=== PATIENT | male | born 1955 | race Caucasian/White ===

== ENCOUNTER 2016-07-15 19:31 | Inpatient (IN) | payer MEDICARE, MEDICAID ==
[2016-07-15] MEDS ORDERED: ACTIVATED CHARCOAL-SORBITOL 50 GM/240 ML BOTTLE PO STA (20:35)
[2016-07-15] MEDS ORDERED: ONDANSETRON 4 MG/2 ML VIAL IVP STA (20:35)
--- NOTE | 2016-07-15 20:40 | ED ---
General Adult HPI - General Source: patient, RN notes reviewed Mode of arrival: wheelchair Limitations: no limitations <Gerry Hogan - Last Filed: 07/15/16 21:15> <Brandon Vaca - Last Filed: 08/07/16 14:29> - General Chief complaint: Overdose Stated complaint: Overdose Time Seen by Provider: 07/15/16 20:05 - History of Present Illness Initial comments: This is a 60-year-old male presents to the emergency department stating he has been drinking today and he took some extra pills because he wanted to kill himself. Patient states he took the pills and called his son and told his son he wanted to kill himself and then up the phone. Patient states he lost his dog last evening as well. Patient states he still suicidal. Patient states he took 9 year or so Adderall as well as 9 or so Klonopin. Patient denies any symptoms currently except the fact he wants to harm himself. Patient denies headache patient denies numbness weakness. Patient denies any chest pain palpitations difficulty breathing or shortness of breath. Patient denies any abdominal pain. Patient denies nausea vomiting diarrhea. (Gerry Hogan) - Related Data Home Medications Medication Instructions Recorded Confirmed HYDROcodone/APAP 10-325MG [[place] 1 tab PO Q6H PRN 07/15/16 07/15/16 10-325] Methylphenidate HCl [Ritalin] 10 mg PO BID 07/15/16 07/15/16 OLANZapine [ZyPREXA] 10 mg PO DAILY 07/15/16 07/15/16 Valproic Acid Oral Soln [Depakene 500 mg PO TID 07/15/16 07/15/16 Syrup] Previous Rx's Medication Instructions Recorded Mirtazapine [Remeron] 45 mg PO HS #30 tab 07/19/16 Phenytoin Sodium Extended 100 mg PO DAILY cap 07/19/16 [Dilantin] clonazePAM [KlonoPIN] 1 mg PO BID PRN tab 07/19/16 Allergies Allergy/AdvReac Type Severity Reaction Status Date / Time No Known Allergies Allergy Verified 07/15/16 20:14 Review of Systems ROS Other: All systems not noted in ROS Statement are negative. <Gerry Hogan - Last Filed: 07/15/16 21:15> ROS Other: All systems not noted in ROS Statement are negative. <Brandon Vaca - Last Filed: 08/07/16 14:29> ROS Statement: Those systems with pertinent positive or pertinent negative responses have been documented in the HPI. Past Medical History Past Medical History: Asthma History of Any Multi-Drug Resistant Organisms: None Reported Past Surgical History: Orthopedic Surgery Past Psychological History: Depression Smoking Status: Current every day smoker Past Alcohol Use History: Occasional Past Drug Use History: None Reported <Gerry Hogan - Last Filed: 07/15/16 21:15> General Exam Limitations: no limitations <Gerry Hogan - Last Filed: 07/15/16 21:15> <Brandon Vaca - Last Filed: 08/07/16 14:29> - General Exam Comments Initial Comments: GENERAL: Patient is well-developed and well-nourished. Patient is nontoxic and well- hydrated and is in no acute distress. ENT: Neck is soft and supple. No significant lymphadenopathy is noted. Oropharynx is clear. Moist mucous membranes. Neck has full range of motion without eliciting any pain. EYES: The sclera were anicteric and conjunctiva were pink and moist. Extraocular movements were intact and pupils were equal round and reactive to light. Eyelids were unremarkable. PULMONARY: Unlabored respirations. Good breath sounds bilaterally. No audible rales rhonchi or wheezing was noted. CARDIOVASCULAR: There is a regular rate and rhythm without any murmurs gallops or rubs. ABDOMEN: Soft and nontender with normal bowel sounds. No palpable organomegaly was noted. There is no palpable pulsatile mass. SKIN: Skin is clear with no lesions or rashes and otherwise unremarkable. NEUROLOGIC: Patient is alert and oriented x3. Cranial nerves II through XII are grossly intact. Motor and sensory are also intact. Normal speech, volume and content. Symmetrical smile. MUSCULOSKELETAL: Normal extremities with adequate strength and full range of motion. No lower extremity swelling or edema. No calf tenderness. LYMPHATICS: No significant lymphadenopathy is noted PSYCHIATRIC: Patient states he suicidal. Patient states he overdosed to try to kill himself. (Gerry Hogan) Medical Decision Making - Lab Data Result diagrams: 07/15/16 20:30 07/15/16 20:30 <Gerry Hogan - Last Filed: 07/15/16 21:15> - Lab Data Result diagrams: 07/15/16 20:30 07/15/16 20:30 <Brandon Vaca - Last Filed: 08/07/16 14:29> - Medical Decision Making EKG shows normal sinus rhythm at 90 bpm OR interval is on a 36 QRS is 96 QT interval 380 QTC is 464. Patient's EKG shows no ST segment elevation or depression or T-wave abdomen is noted. Dr. Vaca will be taking over care of this patient at 10 PM (Gerry Hogan) - Lab Data Lab Results 07/15/16 07/15/16 07/15/16 Range/Units 20:30 20:30 20:30 WBC 6.2 (3.8-10.6) k/uL RBC 4.77 (4.30-5.90) m/uL Hgb 14.2 (13.0-17.5) gm/dL Hct 41.9 (39.0-53.0) % MCV 87.9 (80.0-100.0) fL MCH 29.8 (25.0-35.0) pg MCHC 33.9 (31.0-37.0) g/dL RDW 18.6 H (11.5-15.5) % Plt Count 177 (150-450) k/uL Neutrophils % 59 % Lymphocytes % 30 % Monocytes % 5 % Eosinophils % 2 % Basophils % 1 % Neutrophils # 3.6 (1.3-7.7) k/uL Lymphocytes # 1.8 (1.0-4.8) k/uL Monocytes # 0.3 (0-1.0) k/uL Eosinophils # 0.2 (0-0.7) k/uL Basophils # 0.1 (0-0.2) k/uL Anisocytosis Slight Sodium 145 (137-145) mmol/L Potassium 3.7 (3.5-5.1) mmol/L Chloride 108 H (98-107) mmol/L Carbon Dioxide 23 (22-30) mmol/L Anion Gap 14 mmol/L BUN 19 (9-20) mg/dL Creatinine 0.87 (0.66-1.25) mg/dL Est GFR (MDRD) Af Amer >60 (>60 ml/min/1.73 sqM) Est GFR (MDRD) Non-Af >60 (>60 ml/min/1.73 sqM) Glucose 122 H (74-99) mg/dL Calcium 9.1 (8.4-10.2) mg/dL Total Bilirubin 0.5 (0.2-1.3) mg/dL AST 26 (17-59) U/L ALT 21 (21-72) U/L Alkaline Phosphatase 75 (38-126) U/L Total Protein 7.9 (6.3-8.2) g/dL Albumin 4.7 (3.5-5.0) g/dL TSH 0.702 (0.465-4.680) mIU/L Salicylates <1.0 mg/dL Urine Opiates Screen (NotDetected) Ur Oxycodone Screen (NotDetected) Urine Methadone Screen (NotDetected) Ur Propoxyphene Screen (NotDetected) Acetaminophen <10.0 ug/mL Ur Barbiturates Screen (NotDetected) U Tricyclic Antidepress (NotDetected) Ur Phencyclidine Scrn (NotDetected) Ur Amphetamines Screen (NotDetected) U Methamphetamines Scrn (NotDetected) U Benzodiazepines Scrn (NotDetected) Urine Cocaine Screen (NotDetected) U Marijuana (THC) Screen (NotDetected) Serum Alcohol 187 mg/dL 07/15/16 Range/Units 20:50 WBC (3.8-10.6) k/uL RBC (4.30-5.90) m/uL Hgb (13.0-17.5) gm/dL Hct (39.0-53.0) % MCV (80.0-100.0) fL MCH (25.0-35.0) pg MCHC (31.0-37.0) g/dL RDW (11.5-15.5) % Plt Count (150-450) k/uL Neutrophils % % Lymphocytes % % Monocytes % % Eosinophils % % Basophils % % Neutrophils # (1.3-7.7) k/uL Lymphocytes # (1.0-4.8) k/uL Monocytes # (0-1.0) k/uL Eosinophils # (0-0.7) k/uL Basophils # (0-0.2) k/uL Anisocytosis Sodium (137-145) mmol/L Potassium (3.5-5.1) mmol/L Chloride (98-107) mmol/L Carbon Dioxide (22-30) mmol/L Anion Gap mmol/L BUN (9-20) mg/dL Creatinine (0.66-1.25) mg/dL Est GFR (MDRD) Af Amer (>60 ml/min/1.73 sqM) Est GFR (MDRD) Non-Af (>60 ml/min/1.73 sqM) Glucose (74-99) mg/dL Calcium (8.4-10.2) mg/dL Total Bilirubin (0.2-1.3) mg/dL AST (17-59) U/L ALT (21-72) U/L Alkaline Phosphatase (38-126) U/L Total Protein (6.3-8.2) g/dL Albumin (3.5-5.0) g/dL TSH (0.465-4.680) mIU/L Salicylates mg/dL Urine Opiates Screen Not Detected (NotDetected) Ur Oxycodone Screen Not Detected (NotDetected) Urine Methadone Screen Not Detected (NotDetected) Ur Propoxyphene Screen Not Detected (NotDetected) Acetaminophen ug/mL Ur Barbiturates Screen Not Detected (NotDetected) U Tricyclic Antidepress Not Detected (NotDetected) Ur Phencyclidine Scrn Not Detected (NotDetected) Ur Amphetamines Screen Not Detected (NotDetected) U Methamphetamines Scrn Not Detected (NotDetected) U Benzodiazepines Scrn Not Detected (NotDetected) Urine Cocaine Screen Detected H (NotDetected) U Marijuana (THC) Screen Not Detected (NotDetected) Serum Alcohol mg/dL Disposition <Gerry Hogan - Last Filed: 07/15/16 21:15> <Brandon Vaca - Last Filed: 08/07/16 14:29> Clinical Impression: Depression Disposition: TRANSFER TO PSYCH HOSP/UNIT Condition: Stable
[2016-07-15 20:49] LABS: Anisocytosis Slight; Basophils # (A) 0.1 k/uL (0-0.2); Basophils % (A) 1 %; CH 29.9; CHCM 34.1; Eosinophils # (A) 0.2 k/uL (0-0.7); Eosinophils % (A) 2 %; HCT 41.9 % (39.0-53.0); HGB 14.2 gm/dL (13.0-17.5); Luc % (Auto) 3; Lymphocytes # (A) 1.8 k/uL (1.0-4.8); Lymphocytes % (A) 30 %; MCH 29.8 pg (25.0-35.0); MCHC 33.9 g/dL (31.0-37.0); MCV 87.9 fL (80.0-100.0); Mean Platelet Volume 8.5; Monocytes # (A) 0.3 k/uL (0-1.0); Monocytes % (A) 5 %; Neutrophils # (A) 3.6 k/uL (1.3-7.7); Neutrophils % (A) 59 %; RBC 4.77 m/uL (4.30-5.90); RDW 18.6 % (11.5-15.5); WBC 6.2 k/uL (3.8-10.6); WBC (Perox) 6.21
[2016-07-15 20:59] LABS: ALT 21 U/L (21-72); AST 26 U/L (17-59); Acetaminophen <10.0 ug/mL; Alkaline Phosphatase 75 U/L (38-126); Anion Gap 14 mmol/L; Blood Urea Nitrogen 19 mg/dL (9-20); Calcium 9.1 mg/dL (8.4-10.2); Carbon Dioxide 23 mmol/L (22-30); Chloride 108 mmol/L (98-107); Glucose 122 mg/dL (74-99); Non-African American GFR(MDRD) >60 (>60 ml/min/1.73 sqM); Potassium 3.7 mmol/L (3.5-5.1); Salicylate <1.0 mg/dL; Sodium 145 mmol/L (137-145); Total Bilirubin 0.5 mg/dL (0.2-1.3); Total Protein 7.9 g/dL (6.3-8.2)
[2016-07-15 21:06] LABS: Alcohol 187 mg/dL
--- NOTE | 2016-07-15 21:14 | XR ---
EXAMINATION TYPE: XR chest 2V DATE OF EXAM: 07/15/2016 9:09 PM COMPARISON: NONE HISTORY: Suicidal and smoker with crackles in the lung bases. TECHNIQUE: Frontal and lateral views of the chest are obtained. FINDINGS: There is no focal air space opacity, pleural effusion, or pneumothorax seen. The cardiac silhouette size is within normal limits. The osseous structures are intact. IMPRESSION: No acute cardiopulmonary process.
[2016-07-16] MEDS ORDERED: ACETAMINOPHEN TAB 325 MG TAB PO PRN (07:12)
[2016-07-16] MEDS ORDERED: MAG HYDROX/AL HYDROX/SIMETH 30 ML CUP PO PRN (07:12)
[2016-07-16] MEDS ORDERED: MAGNESIUM HYDROXIDE 2,400 MG/10 ML CUP PO PRN (07:12)
[2016-07-16] MEDS: PHENYTOIN SODIUM EXTENDED 100 MG CAP PO SCH (09:50)
[2016-07-16] MEDS: VALPROIC ACID ORAL SOLN 250 MG/5 ML CUP PO SCH ×3 (09:50→21:08)
[2016-07-16] MEDS: NICOTINE 21MG/24HR PATCH TRANSDERM SCH (09:51)
[2016-07-16] MEDS: OLANZapine 10 MG TAB PO SCH (09:51)
[2016-07-16] MEDS: clonazePAM 1 MG TAB PO PRN ×2 (09:55→21:10)
--- NOTE | 2016-07-16 11:01 | P.HP ---
Psychiatric H&P - . History & Physical: Allergies Allergy/AdvReac Type Severity Reaction Status Date / Time No Known Allergies Allergy Verified 07/15/16 20:14 Vital Signs Temp 98.0 F 07/16/16 07:52 Pulse 72 07/16/16 07:52 Resp 18 07/16/16 07:52 BP 132/86 07/16/16 07:52 Pulse Ox 98 07/16/16 07:52 Intake & Output 07/15/16 07/16/16 07/16/16 18:59 06:59 18:59 Output Total 200 Balance -200 Weight 77.111 kg Output: Urine 200 Straight 200 Laboratory Last Values WBC 6.2 k/uL (3.8-10.6) 07/15/16 20:30 RBC 4.77 m/uL (4.30-5.90) 07/15/16 20:30 Hgb 14.2 gm/dL (13.0-17.5) 07/15/16 20:30 Hct 41.9 % (39.0-53.0) 07/15/16 20:30 MCV 87.9 fL (80.0-100.0) 07/15/16 20:30 MCH 29.8 pg (25.0-35.0) 07/15/16 20:30 MCHC 33.9 g/dL (31.0-37.0) 07/15/16 20:30 RDW 18.6 % (11.5-15.5) H 07/15/16 20:30 Plt Count 177 k/uL (150-450) 07/15/16 20:30 Neutrophils % 59 % 07/15/16 20:30 Lymphocytes % 30 % 07/15/16 20:30 Monocytes % 5 % 07/15/16 20:30 Eosinophils % 2 % 07/15/16 20:30 Basophils % 1 % 07/15/16 20:30 Neutrophils # 3.6 k/uL (1.3-7.7) 07/15/16 20:30 Lymphocytes # 1.8 k/uL (1.0-4.8) 07/15/16 20:30 Monocytes # 0.3 k/uL (0-1.0) 07/15/16 20:30 Eosinophils # 0.2 k/uL (0-0.7) 07/15/16 20:30 Basophils # 0.1 k/uL (0-0.2) 07/15/16 20:30 Anisocytosis Slight 07/15/16 20:30 Sodium 145 mmol/L (137-145) 07/15/16 20:30 Potassium 3.7 mmol/L (3.5-5.1) 07/15/16 20:30 Chloride 108 mmol/L (98-107) H 07/15/16 20:30 Carbon Dioxide 23 mmol/L (22-30) 07/15/16 20:30 Anion Gap 14 mmol/L 07/15/16 20:30 BUN 19 mg/dL (9-20) 07/15/16 20:30 Creatinine 0.87 mg/dL (0.66-1.25) 07/15/16 20:30 Est GFR (MDRD) Af Amer >60 (>60 ml/min/1.73 sqM) 07/15/16 20:30 Est GFR (MDRD) Non-Af >60 (>60 ml/min/1.73 sqM) 07/15/16 20:30 Glucose 122 mg/dL (74-99) H 07/15/16 20:30 Calcium 9.1 mg/dL (8.4-10.2) 07/15/16 20:30 Total Bilirubin 0.5 mg/dL (0.2-1.3) 07/15/16 20:30 AST 26 U/L (17-59) 07/15/16 20:30 ALT 21 U/L (21-72) 07/15/16 20:30 Alkaline Phosphatase 75 U/L (38-126) 07/15/16 20:30 Total Protein 7.9 g/dL (6.3-8.2) 07/15/16 20:30 Albumin 4.7 g/dL (3.5-5.0) 07/15/16 20:30 Salicylates <1.0 mg/dL 07/15/16 20:30 Urine Opiates Screen Not Detected (NotDetected) 07/15/16 20:50 Ur Oxycodone Screen Not Detected (NotDetected) 07/15/16 20:50 Urine Methadone Screen Not Detected (NotDetected) 07/15/16 20:50 Ur Propoxyphene Screen Not Detected (NotDetected) 07/15/16 20:50 Acetaminophen <10.0 ug/mL 07/15/16 20:30 Ur Barbiturates Screen Not Detected (NotDetected) 07/15/16 20:50 U Tricyclic Antidepress Not Detected (NotDetected) 07/15/16 20:50 Ur Phencyclidine Scrn Not Detected (NotDetected) 07/15/16 20:50 Ur Amphetamines Screen Not Detected (NotDetected) 07/15/16 20:50 U Methamphetamines Scrn Not Detected (NotDetected) 07/15/16 20:50 U Benzodiazepines Scrn Not Detected (NotDetected) 07/15/16 20:50 Urine Cocaine Screen Detected (NotDetected) H 07/15/16 20:50 U Marijuana (THC) Screen Not Detected (NotDetected) 07/15/16 20:50 Serum Alcohol 187 mg/dL 07/15/16 20:30 07/16/16 10:48 IDENTIFYING DATA: This patient is a 60-year-old who was admitted to the mental health unit through the emergency room with acute suicidal ideation. HPI: The patient presented to the emergency room intoxicated alcohol level was 187. He reported that he had overdosed with Ritalin and Klonopin taking 3 tablets of Ritalin 8 or 9 tablets of Klonopin and other medications with them. He states his intent was to when he took the overdose. He had consumed a half pint of vodka as well. He reports a long history of depression and this suicide attempt appeared to be triggered by the of his dog on Friday. He reports feeling tired now. Appetite has been decreased energy low. He felt overwhelmed by stressors which include financial and his car breaking down. He endorses previous episodes of depression. He states he's been diagnosed with bipolar disorder but does not endorse symptoms consistent with manic episodes. He states he's ordinarily not anxious he is endorsing no panic attacks. He does work with a psychiatrist in the [facility] and sees him monthly. The patient states that he was just admitted to [facility] psychiatric unit 6 or 8 months ago. He states he was there for 3-4 weeks. He is reporting no auditory or visual hallucinations he is endorsing no specific delusions. He reports having no firearms at home. PAST PSYCHIATRIC HISTORY: Approximately 3 prior inpatient psychiatric admissions , approximately a total of 3 suicide attempts all involving medication overdose. He works with a psychiatrist "Dr. Bell" in the [facility]. We believe he is prescribed Zyprexa 10 mg daily, Remeron 30 mg at bedtime, Ritalin 10 mg twice daily, Klonopin 1 mg 2-3 times daily. He is unaware of other psychotropic medications he may have taken. PMH: Chronic back pain ALLERGIES: NO KNOWN DRUG ALLERGIES MEDICATIONS: As above he also has a seizure disorder and takes Dilantin and Depakene and [place] 10 mg every 6 hours as needed for pain CHEMICAL DEPENDENCY HISTORY: He reports a previous history of alcohol use disorder but states he has not had any alcohol in approximately one year he was drinking heavily after the of his 10 years ago. He reports no use of marijuana or any other illicit drug he states he's never been in residential treatment for chemical dependency reasons. His urine drug screen was positive however for cocaine FAMILY PSYCHIATRIC HISTORY: None reported, no suicides in the family FAMILY CHEMICAL DEPENDENCY HISTORY: Unknown SOCIAL HISTORY: The patient is 60 years old he is a for 10 years, he has 4 children he states that he does speak with them frequently. He recently moved to the [facility] one month ago as he has a brother and cousin in this area. He was previously residing in [place]. He has an 11th grade education, no history of service, he is not employed and is on a disability income for back pain and psychiatric reasons. Abuse history none reported, legal history he states that he's had several arrests over 30 years ago and would not specify the reasons. He does state it were not for violent crimes. MENTAL STATUS EXAM: The patient is a thin male appearing older than his stated age he has a disheveled appearance he is balding he has an overgrown mustache and has not shaved. He is dressed in hospital gowns. He appears tired but is not lethargic. Eye contact is appropriate speech is nonspontaneous but he provides brief answers to questions asked in a quiet monotone voice. He does have significant hearing loss requiring me to speak in a loud tone. He reports his mood is depressed with suicidal ideation. He feels overwhelmed by stressors. Affect is flat with no change in expression during the session. He reports no homicidal ideation, he reports no auditory or visual hallucinations and no current specific delusions. He states in the past he had struggled with thoughts of people following him and always wanting to look over his shoulder. He demonstrates no verbal or physical aggressiveness. He demonstrates no abnormal involuntary movements. He is oriented to person place and date. He is able to name the days of the week backwards. STRENGTHS/WEAKNESSES: Strengths: Housing, income weaknesses: Substance use, grief and loss INTELLECTUAL FUNCTIONING: Average IMPRESSIONS: [] 1. Major depressive disorder recurrent severe without psychosis, rule out bipolar depression, history of alcohol use disorder 2. History of back pain 3. Financial strain, loss of dog PLAN: The patient has been admitted to the mental health unit he is here voluntarily. We reviewed his presenting symptoms at this point we will continue his psychiatric medicines as written but will use the Klonopin 1 mg up to twice daily, Zyprexa 10 mg daily Remeron 30 mg at bedtime. We will hold the Ritalin for now. Dilantin and Depakene will be continued. We will try to obtain records from his treating psychiatrist or at least his last hospitalization. Social work is alert he met with the patient to complete a psychosocial history. The patient will be seen by the internal medicine physician for routine history and physical exam. We will discuss his use of substances further. We will monitor him for safety and encourage his full participation in the milieu. We will involve family or other support in treatment and discharge planning as available and as he will allow.
--- NOTE | 2016-07-16 14:59 | P.CONS ---
History of Present Illness - Reason for Consult Consult date: 07/16/16 Medical management - History of Present Illness This is a 60-year-old male with past medical history for seizure disorder, hepatitis C treated with interferon and then with her bony for 12 weeks one year ago, depression, tobacco use and dependence, history of alcohol abuse. Patient states he has been depressed for at least 10 years. He does see a psychiatrist. He denies any suicidal thoughts now. He presented to [facility] emergency center. Chest x-ray showed no acute findings. Urine drug screen was positive for cocaine. Valproic acid less than 10, the nitro: Less than 3. Alcohol level CLXXXVII, acetaminophen less than 10 , salicylate less than 1. Patient states that he has been taking his seizure medications as instructed. Patient denies taking any street drugs. Review of Systems All systems: negative Constitutional: Denies chills, Denies fever Eyes: denies blurred vision, denies pain Ears, nose, mouth and throat: Denies headache, Denies sore throat Cardiovascular: Denies chest pain, Denies shortness of breath Respiratory: Denies cough Gastrointestinal: Denies abdominal pain, Denies diarrhea, Denies nausea, Denies vomiting Musculoskeletal: Denies myalgias Integumentary: Denies pruritus, Denies rash Neurological: Denies numbness, Denies weakness Psychiatric: Reports depression, Denies anxiety, Denies suicidal ideation Endocrine: Denies fatigue, Denies weight change Past Medical History Additional Past Medical History / Comment(s): Hepatitis C, seizure disorder History of Any Multi-Drug Resistant Organisms: None Reported Past Surgical History: Orthopedic Surgery Additional Past Surgical History / Comment(s): Sarbjit and pins in his left leg due to crushing accident Past Psychological History: Depression Smoking Status: Current every day smoker Past Alcohol Use History: Occasional Additional Past Alcohol Use History / Comment(s): He is a smoker one pack per day for 40 years. He states he used to use a lot of alcohol. He denies any street drug, medical marijuana, marijuana use. Past Drug Use History: None Reported - Past Family History Father Additional Family Medical History / Comment(s): Father at age 45 from colon cancer. Mother Additional Family Medical History / Comment(s): Mother in her 30s from sepsis. Brother(s) Additional Family Medical History / Comment(s): Patient has 1 brother and 1 sister with no major medical problems. Patient has 4 sons with no major medical problems. Medications and Allergies Home Medications Medication Instructions Recorded Confirmed Type HYDROcodone/APAP 10-325MG [[place] 1 tab PO Q6H PRN 07/15/16 07/15/16 History 10-325] Methylphenidate HCl [Ritalin] 10 mg PO BID 07/15/16 07/15/16 History Mirtazapine [Remeron] 30 mg PO HS 07/15/16 07/15/16 History OLANZapine [ZyPREXA] 10 mg PO DAILY 07/15/16 07/15/16 History Phenytoin Sodium Extended 100 mg PO DAILY 07/15/16 07/15/16 History [Dilantin] Valproic Acid Oral Soln [Depakene 500 mg PO TID 07/15/16 07/15/16 History Syrup] clonazePAM [KlonoPIN] 1 mg PO TID PRN 07/15/16 07/15/16 History Allergies Allergy/AdvReac Type Severity Reaction Status Date / Time No Known Allergies Allergy Verified 07/15/16 20:14 Physical Exam Vitals: Vital Signs Temp Pulse Resp BP Pulse Ox 07/16/16 07:52 98.0 F 72 18 132/86 98 07/16/16 06:54 81 16 134/84 97 07/16/16 00:13 86 16 115/67 92 L 07/15/16 23:00 96.8 F L 98 16 114/68 91 L 07/15/16 22:47 94 16 114/68 98 07/15/16 20:01 97.9 F 92 18 129/75 96 Intake and Output 07/15/16 07/16/16 07/16/16 22:59 06:59 14:59 Output Total 200 Balance -200 Output: Urine 200 Straight 200 Other: Weight 77.111 kg Gen: This is a thin 60-year-old male. His speech is low volume and difficult to understand. HEENT: Head is atraumatic, normocephalic. Pupils equal, round. Sclerae is anicteric. NECK: Supple. No JVD. No lymphadenopathy. No thyromegaly. LUNGS: Clear to auscultation. No wheezes or rhonchi. No intercostal retractions. HEART: Regular rate and rhythm. No murmur. ABDOMEN: Soft. Bowel sounds are present. No masses. No tenderness. EXTREMITIES: No pedal edema. No calf tenderness. NEUROLOGICAL: Patient is awake, alert and oriented x3. Cranial nerves 2 through 12 are grossly intact. Results CBC & Chem 7: 07/15/16 20:30 07/15/16 20:30 Labs: Abnormal Lab Results - Last 24 Hours (Table) 07/15/16 07/15/16 07/15/16 Range/Units 20:30 20:30 20:50 RDW 18.6 H (11.5-15.5) % Chloride 108 H (98-107) mmol/L Glucose 122 H (74-99) mg/dL Urine Cocaine Screen Detected H (NotDetected) Assessment and Plan Plan: 1. Depression. Patient admitted to the mental health unit. Continue current plan of care. 2. Tobacco use and dependence. Continue nicotine patch. 3. Seizure disorder. Patient has been resumed back on his normal dose of valproic acid and phenytoin. 4. History of alcohol abuse. Continue as in #1. 5. Hepatitis C status post Abhay he treatment. Liver function tests normal. Impression and plan of care have been directed as dictated by the signing physician. Thania Saenz nurse practitioner acting as scribe for signing physician.
[2016-07-16] MEDS ORDERED: MIRTAZAPINE 15 MG TAB PO SCH (21:00)
[2016-07-17 06:54] VITALS: RESP 16
--- NOTE | 2016-07-17 10:20 | P.PN ---
Progress Note - Text Interval history: The patient is found in the library he follows me to an interview room. The patient refused medications this morning as he felt we were prescribing them correctly. We held a detail discussion regarding his medications. We still have not received any records from his outpatient clinician's office. We decided to proceed with increasing the Remeron to 45 mg at bedtime to further address depressive symptoms. His Klonopin is available 1 mg up to twice daily as needed we will reinstitute the Ritalin 10 mg twice daily. He feels the Ritalin is very helpful in helping him concentrate focus. Vital signs reviewed. He states he was doing fairly well up until the of his dog. In general he describes himself as being lonely and his 2 dogs were the only companionship he has on a regular basis. His brother is in the area and he reports he did speak with him on the phone but he is employed so he is not sure if his brother will visit this evening. We discussed the importance of the patient attending groups however he does have a significant hearing impairment. Mental status exam: The patient is a thin male hygiene and improved it appears he showered grooming is improved. He is dressed in his own clothing. Eye contact is appropriate he maintains a flat affect he has significant hearing loss requiring me to speak in a loud tone. He endorses feeling of sadness loneliness. He feels safe here in the hospital and reports no acute suicidal ideation. There is no homicidal ideation there is no evidence of psychosis hypomania or ed. Insight and judgment limited. He is oriented to person place month and year. He demonstrates no abnormal involuntary movements. Plan: The patient's will continue on his current medication however we will increase the Remeron to 45 mg at bedtime I will order his Ritalin 10 mg twice daily before breakfast and lunch. Klonopin's available twice a day as needed he is encouraged to use it only when needed. We will attempt to contact his brother for collateral information we will review any records we received from his outpatient clinician. He is encouraged participate in the milieu we will continue to monitor him for safety.
[2016-07-17] MEDS: VALPROIC ACID ORAL SOLN 250 MG/5 ML CUP PO SCH ×3 (10:36→20:52)
[2016-07-17] MEDS: PHENYTOIN SODIUM EXTENDED 100 MG CAP PO SCH ×2 (10:36→10:39)
[2016-07-17] MEDS: OLANZapine 10 MG TAB PO SCH (10:39)
[2016-07-17] MEDS: clonazePAM 1 MG TAB PO PRN (10:39)
[2016-07-17] MEDS: NICOTINE 21MG/24HR PATCH TRANSDERM SCH (10:40)
[2016-07-17] MEDS: METHYLPHENIDATE HCL 10 MG TAB PO SCH (13:09)
[2016-07-17] MEDS: MIRTAZAPINE 45 MG TABLET PO SCH (20:52)
[2016-07-18] MEDS: VALPROIC ACID ORAL SOLN 250 MG/5 ML CUP PO SCH ×3 (08:20→21:05)
[2016-07-18] MEDS: METHYLPHENIDATE HCL 10 MG TAB PO SCH ×2 (08:20→12:53)
[2016-07-18] MEDS: OLANZapine 10 MG TAB PO SCH (08:20)
[2016-07-18] MEDS: NICOTINE 21MG/24HR PATCH TRANSDERM SCH (08:20)
[2016-07-18] MEDS: clonazePAM 1 MG TAB PO PRN ×2 (08:21→21:07)
--- NOTE | 2016-07-18 11:06 | P.PN ---
Progress Note - Text Interval history: The patient is found in his room he follows me to an interview room. He reports that his moods improving. He was able to sleep last night. He is participating in the milieu. We discussed the events precipitating this admission mainly the of his dog. Spontaneously he states "I should've called my son" as a coping skill to deal with that loss. He has been compliant with medications he has demonstrated no agitated behavior. We discussed his significant hearing loss and he does have a plan to begin the process for getting hearing aids. Social work has spoken with the patient's son and brother and reportedly neither of them have any concerns regarding a discharge plan for tomorrow. Mental status exam: The patient is a tall thin male casually dressed hygiene is adequate. Eye contact is appropriate speech is fluent and spontaneous at times. He maintains a constricted affect but does demonstrate brief smiling twice. He is edentulous. He seated calmly in the chair he demonstrates no verbal or physical aggressiveness. He is endorsing no suicidal or homicidal ideation intent or plan. He is endorsing no auditory or visual hallucinations no specific delusions there is no evidence of psychosis. He does not appear hypomanic or manic. Insight and judgment improving. He remains oriented to person place and date. Plan: The patient will continue on his current psychotropic medications. No records were received as requested. We will proceed with a plan to discharge the patient tomorrow if he remains clinically stable and continues to demonstrate improvement. Social work will likely facilitate a support meeting via phone as his son and brother both work and are not able to be present on the mental health unit. We will continue to monitor the patient for safety. Vital signs reviewed.
[2016-07-18] MEDS: MIRTAZAPINE 45 MG TABLET PO SCH (21:05)
[2016-07-19 06:32] VITALS: BP 141/91; PULSE 71; TEMP 97.4
--- NOTE | 2016-07-19 08:37 | P.DS ---
Providers Date of admission: 07/16/16 05:47 Expected date of discharge: 07/19/16 Attending physician: Ricardo Zaman Consults: 07/16/16 07:12 Consult Physician Routine Consulting Provider: Smith Aj Consult Reason/Comments: H & P and medical follow up Do you want consulting provider notified?: Yes Primary care physician: Stated None - Discharge Diagnosis(es) (1) Major depressive disorder, recurrent severe without psychotic features Current Visit: Yes Status: Acute Priority: High (2) Alcohol use disorder Current Visit: Yes Status: Acute Priority: Medium Hospital Course: Brief summary of admission note: This patient is a 60-year-old who was admitted to the mental health unit through the emergency room for acute suicidal ideation. The patient presented to the emergency room intoxicated with an alcohol level of 187. He had reported that he had overdosed with Ritalin and Klonopin taking 3 tablets of Ritalin and 8 or 9 tablets of Klonopin. He reported his intent was to when he took the overdose. He had been consuming alcohol at the same time. He reported a long history of depression. This most recent suicidal ideation was triggered by the of his dog. He stated he had to watch his dog slowly over the course of Friday and he became overwhelmed. He also reported being stressed by financial issues. For full detail presents referred to my psychiatric evaluation dated 07/16/2016. Summary of hospital course: The patient was admitted to the mental health unit he did sign in voluntarily. We reviewed his presenting symptoms and medication options. Ultimately we decided to titrate his Remeron to 45 mg at bedtime. He was continued on Klonopin but twice daily rather than 3 times daily. His Ritalin was continued and his Zyprexa was continued. We did make an attempt to obtain records from his outpatient psychiatrist but they were not sent during this stay. Social work did contact the patient's brother and son. Reportedly they both felt that the patient was overwhelmed by the of his dog and they were agreeable to monitoring him upon discharge. The patient's was cooperative throughout the hospital stay. He demonstrated no agitated behavior. He was compliant with medication once we agreed on a treatment plan. He was seen by the contracts director for routine history and physical exam. He reported a resolution of any acute suicidal ideation. We discussed his use of alcohol and he had been sober for an extended period of time until this relapse. He does not wish to participate in any inpatient chemical dependency treatment. In terms of outpatient follow-up he wishes to continue working with his outpatient psychiatrist in [facility]. Social work has been making an effort to arrange a family meeting but this will likely happen via phone as his brother and son work during the day. Mental status exam: The patient is alert he is a thin male appearing his stated age. He has a long mustache. The patient is edentulous. Eye contact is appropriate speech is fluent spontaneous nonpressured he has a monotone quality to his voice. He maintains a constricted affect with some brief smiling appropriately. He reports his mood is "fine". He is reporting no hopelessness thinking no suicidal ideation intent or plan. He is reporting no homicidal ideation intent or plan. He is endorsing no auditory or visual hallucinations he is endorsing no specific delusions. There is no evidence of psychosis. He does not present hypomanic or manic. Insight and judgment appear to have improved. He states spontaneously that he would call his son or brother when he needs them next time. He demonstrates no verbal or physical aggressiveness. He remains oriented to person place and date. He chronically has significant hearing loss. Impressions 1. Major depressive disorder recurrent severe without psychosis, rule out bipolar depression, history of alcohol use disorder, anxiety unspecified 2. History of back pain, 3. Loss of dog, financial strain Plan: The patient will be discharged from the mental health unit today to return home. He will continue on Remeron 45 mg at bedtime, Zyprexa 10 mg at bedtime, Klonopin 1 mg up to twice daily as prescribed by his outpatient psychiatrist, Ritalin 10 mg twice daily as prescribed by his outpatient psychiatrist. He is instructed to abstain from any alcohol use. He does not wish to participate in inpatient chemical dependency treatment but is willing to discuss his alcohol use with his outpatient clinician. Social work will conduct a phone family meeting if this cannot be done and person with either the patient's son or brother. There is no imminent safety risk he is appropriate for transition to outpatient care. He is instructed to return to the hospital with any acute safety concerns. Patient Condition at Discharge: Stable Plan - Discharge Summary New Discharge Prescriptions: Mirtazapine [Remeron] 45 mg PO HS #30 tab Discharge Medication List HYDROcodone/APAP 10-325MG [[place] 10-325] 1 tab PO Q6H PRN 07/15/16 [History] Methylphenidate HCl [Ritalin] 10 mg PO BID 07/15/16 [History] OLANZapine [ZyPREXA] 10 mg PO DAILY 07/15/16 [History] Valproic Acid Oral Soln [Depakene Syrup] 500 mg PO TID 07/15/16 [History] Mirtazapine [Remeron] 45 mg PO HS #30 tab 07/19/16 [Rx] Phenytoin Sodium Extended [Dilantin] 100 mg PO DAILY cap 07/19/16 [Rx] clonazePAM [KlonoPIN] 1 mg PO BID PRN tab 07/19/16 [Rx] Follow up Appointment(s)/Referral(s): [facility] Gaspar [Other] - 08/02/16 2:15 pm (Dr Bell ) [facility] [Outside] - 07/27/16 9:00 am (Dr Cheney Please call in advance if unable to make it ) None,Stated [Primary Care Provider] - 1 Week
[2016-07-19] MEDS: OLANZapine 10 MG TAB PO SCH (08:45)
[2016-07-19] MEDS: VALPROIC ACID ORAL SOLN 250 MG/5 ML CUP PO SCH (08:45)
[2016-07-19] MEDS: METHYLPHENIDATE HCL 10 MG TAB PO SCH (08:45)
[2016-07-19] MEDS: PHENYTOIN SODIUM EXTENDED 100 MG CAP PO SCH (08:45)
== END 2016-07-19 12:03 | disposition home or self-care (01) | DRG 885 ==
LOC: EC 19:31 → 3MHU 07-16 05:47
PROVIDERS: ADMIT Psychiatry & Neurology Psychiatry; ATTEND Psychiatry & Neurology Psychiatry
DX: F33.2 Major depressive disorder, recurrent severe without psychotic features (principal); G40.909 Epilepsy, unspecified, not intractable, without status epilepticus; R45.851 Suicidal ideations; F10.129 Alcohol abuse with intoxication, unspecified; F17.200 Nicotine dependence, unspecified, uncomplicated; H91.90 Unspecified hearing loss, unspecified ear; J45.909 Unspecified asthma, uncomplicated; Y90.6 Blood alcohol level of 120-199 mg/100 ml; Z59.9 Problem related to housing and economic circumstances, unspecified; Z79.899 Other long term (current) drug therapy; Z91.5 Personal history of self-harm
CPT/HCPCS: 36415; 51701; 71020; 80053; 80164; 80185; 80306; 80320; 82075; 83520; 84443; 85025; 93005; 96374; 99285

== ENCOUNTER 2016-09-03 20:22 | Emergency (ER) | payer MEDICARE, OTHER ==
[2016-09-03] MEDS ORDERED: SODIUM CHLORIDE 0.9% 1,000 ML IV ONE (20:34)
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
[2016-09-03 20:55] LABS: Anisocytosis Slight; Basophils # (A) 0.1 k/uL (0-0.2); Basophils % (A) 2 %; CH 30.4; CHCM 34.2; Eosinophils # (A) 0.1 k/uL (0-0.7); Eosinophils % (A) 1 %; HCT 39.2 % (39.0-53.0); HDW 2.73; HGB 14.1 gm/dL (13.0-17.5); Luc # (Auto) 0.24; Luc % (Auto) 4; Lymphocytes # (A) 2.2 k/uL (1.0-4.8); Lymphocytes % (A) 31 %; MCH 32.1 pg (25.0-35.0); Mean Platelet Volume 8.3; Monocytes # (A) 0.4 k/uL (0-1.0); Monocytes % (A) 6 %; Neutrophils % (A) 57 %; RBC 4.41 m/uL (4.30-5.90); RDW 18.7 % (11.5-15.5); WBC (Perox) 6.39
[2016-09-03 21:08] LABS: ALT 22 U/L (21-72); AST 18 U/L (17-59); Alkaline Phosphatase 75 U/L (38-126); Anion Gap 13 mmol/L; Blood Urea Nitrogen 13 mg/dL (9-20); Calcium 9.4 mg/dL (8.4-10.2); Carbon Dioxide 24 mmol/L (22-30); Chloride 110 mmol/L (98-107); Glucose 101 mg/dL (74-99); Magnesium 2.4 mg/dL (1.6-2.3); Non-African American GFR(MDRD) >60 (>60 ml/min/1.73 sqM); Potassium 3.8 mmol/L (3.5-5.1); Sodium 147 mmol/L (137-145); Total Bilirubin 0.4 mg/dL (0.2-1.3); Total Protein 7.2 g/dL (6.3-8.2)
[2016-09-03 21:15] LABS: Alcohol 232 mg/dL
[2016-09-03] MEDS ORDERED: PHENYTOIN SODIUM EXTENDED 100 MG CAP PO STA (23:42)
[2016-09-03] MEDS ORDERED: DIVALPROEX 500 MG TABLET.DR PO STA (23:42)
[2016-09-03] MEDS ORDERED: SODIUM CHLORIDE 0.9% 1,000 ML with POTASSIUM CHLORIDE 20 MEQ, MVI, ADULT NO.4 WITH VIT ... IV ONE ×5 (23:45)
[2016-09-04 00:14] LABS: Appearance,Urine Clear (Clear); Bacteria,Urine Rare /hpf; Bilirubin,Urine Negative (Negative); Glucose,Urine (UA) Negative (Negative); Ketones,Urine Negative (Negative); Leukocyte Esterase,Urine Trace (Negative); Mucus,Urine Rare /hpf; Nitrite,Urine Negative (Negative); Particle Count 2009; Protein,Urine Negative (Negative); RBC,Urine <1 /hpf (0-5); Specific Gravity,Urine 1.006 (1.001-1.035); UA Billing (MACRO vs. MICRO) MICRO; Urobilinogen,Urine <2.0 mg/dL (<2.0); WBC,Urine 4 /hpf (0-5)
[2016-09-04] MEDS ORDERED: PHENYTOIN SODIUM EXTENDED 100 MG CAP PO STA (02:58)
[2016-09-04 09:52] VITALS: BP 135/77; PULSE 90; RESP 16; TEMP 97.1
== END 2016-09-04 09:52 | disposition home or self-care (01) ==
LOC: EC 20:22
DX: F10.129 Alcohol abuse with intoxication, unspecified (principal); R45.851 Suicidal ideations; T42.0X6A Underdosing of hydantoin derivatives, initial encounter; T42.6X6A Underdosing of other antiepileptic and sedative-hypnotic drugs, initial encounter; Z91.128 Patient's intentional underdosing of medication regimen for other reason; R56.9 Unspecified convulsions; G40.909 Epilepsy, unspecified, not intractable, without status epilepticus; B19.20 Unspecified viral hepatitis C without hepatic coma; F32.9 Major depressive disorder, single episode, unspecified; F17.200 Nicotine dependence, unspecified, uncomplicated; Z79.899 Other long term (current) drug therapy
CPT/HCPCS: 82075; 36415; 80164; 80053; 80185; 83735; 85025; 81001; 80306; 80320; 96365; 96366; 99285; J3411; J3480

== ENCOUNTER 2017-01-11 21:38 | Emergency (ER) | payer MEDICARE, OTHER ==
[2017-01-11 21:46] VITALS: BP 147/86; PULSE 99; RESP 19; TEMP 97.2
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
== END 2017-01-12 04:14 | disposition home or self-care (01) ==
LOC: EC 21:38
DX: F10.120 Alcohol abuse with intoxication, uncomplicated (principal); F32.9 Major depressive disorder, single episode, unspecified; F17.200 Nicotine dependence, unspecified, uncomplicated; Z86.69 Personal history of other diseases of the nervous system and sense organs; Z79.899 Other long term (current) drug therapy
CPT/HCPCS: 80306; 82075; 99284